=== PATIENT | female | born 1955 | race Caucasian/White ===

== ENCOUNTER 2016-07-05 10:05 | Emergency (ER) | payer BC, OTHER ==
[2016-07-05 10:26] VITALS: TEMP 97.9
[2016-07-05 10:52] LABS: COLOR YELLOW; LEUKOCYTE ESTERASE,URINE NEGATIVE (NEGATIVE); NITRITE,URINE NEGATIVE (NEGATIVE)
--- NOTE | 2016-07-05 11:26 | EDPHY ---
H & P Stated Complaint: Blood in Urine, feels like kidney infection, has hx of kidney infection. Time Seen by Provider: 07/05/16 11:13 HPI/ROS: CHIEF COMPLAINT: Fatigue, Dark urine HISTORY OF PRESENT ILLNESS: The patient is a 60 year old female presenting with increased fatigue for the past few day. This morning urine was dark orange colored. She has lower abdominal pain that radiates to her flanks bilaterally. The patient has a history of recurrent kidney infections and states her symptoms feel similar. She felt febrile last night. She denies vagina bleeding. No vomiting, diarrhea, headache, or lightheadedness. The patient has a history of PE, she is anticoagulated on Coumadin. She denies chest pain, shortness of breath, or palpitations. The patient received a flu shot this season. REVIEW OF SYSTEMS: Aside from elements discussed in the HPI, a comprehensive 10-point review of systems was reviewed and is negative. PAST MEDICAL HISTORY: Pulmonary embolisms x2, hypertension, kidney infections, Endometriosis, Asthma, Depression. PSH: Cholecystectomy, Spinal fusion. SOCIAL HISTORY: Non-smoker. Occasional alcohol. No drug use. VITAL SIGNS: Reviewed by me GENERAL: Well-developed, well-nourished, resting comfortably in no respiratory distress. HEENT: Atraumatic. Eyes: No icterus, no injection. Mouth: moist mucous membranes. No erythema or lesions. Neck: supple with no adenopathy. LUNGS: Clear to auscultation bilaterally, no wheezes, rhonchi or rales. CARDIAC: Regular rate and rhythm, no rubs, murmurs or gallops. ABDOMEN: Soft, nontender, nondistended, bowel sounds normal. BACK: mild left flank tenderness. EXTREMITIES: No trauma. No edema. Range of motion is normal throughout. NEURO: Alert and oriented, grossly nonfocal. SKIN: Warm and dry, no rash. PSYCHIATRIC: Normal mentation, no agitation. Portions of this note were transcribed by a medical staff coordinator. I personally performed a history, physical exam, medical decision making, and confirmed accuracy of information the transcribed note. - Personal History Current Tetanus/Diphtheria Vaccine: Yes Current Tetanus Diphtheria and Acellular Pertussis (TDAP): Yes - Medical/Surgical History Hx Asthma: Yes Hx Chronic Respiratory Disease: No Hx Diabetes: No Hx Cardiac Disease: No Hx Renal Disease: No Hx Cirrhosis: No Hx Alcoholism: No Hx HIV/AIDS: No Hx Splenectomy or Spleen Trauma: No Other PMH: Spinal fusion C5/C6. Kidney stone, HTN, Major Depressive DO, Asthma, PE in '08 - Social History Smoking Status: Former smoker Constitutional: Initial Vital Signs Temperature (C) 36.6 C 07/05/16 10:21 Heart Rate 93 07/05/16 10:21 Respiratory Rate 14 07/05/16 10:21 Blood Pressure 112/60 07/05/16 10:21 O2 Sat (%) 93 07/05/16 10:21 O2 Delivery Mode Room Air Allergies/Adverse Reactions: mushroom Allergy (Mild, Verified 07/05/16 10:26) Vomiting Sulfa (Sulfonamide Antibiotics) Allergy (Unknown, Verified 11/15/10 07:22) mycins Allergy (Unknown, Uncoded 11/15/10 07:22) Home Medications: Medication Instructions Recorded Artane 2 mg 11/15/10 Atorvastatin Calcium [Lipitor 40mg] 40 mg PO DAILY 11/15/10 Calcium Supplements 1,000 mg 11/15/10 ESTRADIOL [VAGIFEM] 11/15/10 Fluconazole [Diflucan] 11/15/10 Frovatriptan Succinate [Frova] 11/15/10 Gabapentin [Neurontin] 400 11/15/10 Hydrocodone Bit/Acetaminophen 1 tab PO Q4-6PRN PRN 11/15/10 [OLMCYB97/325] Levothyroxine [Levothroid, 100 mcg PO DAILY@1000 11/15/10 Synthroid] Loratadine [Claritin] 10 mg PO 11/15/10 Magnesium Malate 11/15/10 Melatonin 5 11/15/10 Mometasone Furoate Nasal [Nasonex] 2 sprays NASAL DAILY 11/15/10 Montelukast Sodium [Singulair] 11/15/10 Mv 11/15/10 Bellevue-3 Fatty Acids [Bellevue-3] 11/15/10 Paliperidone [INVEGA] 11/15/10 Pantoprazole Sodium [Protonix] 40 mg PO DAILY 11/15/10 Prochlorperazine Maleate PRN 11/15/10 [Compazine] Prodrin 11/15/10 Promethazine HCl [Phenergan] 25 mg PO PRN 11/15/10 TIZANIDINE HCL [Zanaflex] 4 mg PO 11/15/10 TRAMADOL HCL 50 11/15/10 Topiramate [Topamax] 100 mg PO 11/15/10 Verapamil ER [Calan SR/ER 240MG 11/15/10 (*)] Vit B6 11/15/10 Vit C 500 11/15/10 Vit E With Selenium 400 iunits 11/15/10 WARFARIN SODIUM [Coumadin] 7.5 mg PO 11/15/10 Zinc Gluconate [Zinc Chelated] 30 mg PO 11/15/10 traZODone [traZODone HCL] 300 11/15/10 Ondansetron Odt [Zofran Odt 4 mg 4 mg PO Q6 PRN #6 tab 07/05/16 (RX)] Medical Decision Making - Diagnostics EKG Interpretation: The 12 lead EKG was interpreted by myself. See hard copy and/or "tracemaster" electronic copy for interpretation: Sinus rhythm, abnormal R wave progression. Imaging: Results: CT scan of the abdomen/pelvis was obtained. I viewed the images independently on the PACS system. I discussed the results of the study with the radiologist. Impression: Pronounced constipation with nonspecific mildly dilated loops of small bowel with some scattered air-fluid levels, suggestive of a dysmotile syndrome. There is no mechanical obstructive process observed. Please see the full radiology report. ED Course/Re-evaluation: UA is negative for infection. Plan for EKG, labs, and troponin. Blood work is normal. UA is negative for infection. Troponin is negative. Patient's CT scan demonstrates pronounced constipation, no kidney stone, no bowel obstruction. Patient was reassured by the findings. She was advised to use MiraLax for constipation, drink plenty of fluids, get plenty of rest, eat a balanced diet starting with a bland diet, and return to the emergency department as needed. Differential Diagnosis: After obtaining the patient's history and performing an examination, differential diagnosis of the patient's fatigue in urinary complaints considered included but was not limited to urinary tract infection, kidney stone , pyelonephritis, shingles, intra-abdominal causes such as diverticulitis or or appendicitis, constipation, electrolyte abnormalities. - Data Points Laboratory Results: Laboratory Results 07/05/16 10:53 07/05/16 10:53 07/05/16 07/05/16 07/05/16 10:53 10:53 10:53 WBC 7.69 10^3/uL 10^3/uL (3.80-9.50) RBC 4.65 10^6/uL 10^6/uL (4.18-5.33) Hgb 14.4 g/dL g/dL (12.6-16.3) Hct 43.7 % % (38.0-47.0) MCV 94.0 fL fL (81.5-99.8) MCH 31.0 pg pg (27.9-34.1) MCHC 33.0 g/dL g/dL (32.4-36.7) RDW 14.1 % % (11.5-15.2) Plt Count 236 10^3/uL 10^3/uL (150-400) MPV 10.0 fL fL (8.7-11.7) Neut % (Auto) 60.3 % % (39.3-74.2) Lymph % (Auto) 27.6 % % (15.0-45.0) Dukes % (Auto) 6.1 % % (4.5-13.0) Eos % (Auto) 4.9 % % (0.6-7.6) Baso % (Auto) 0.8 % % (0.3-1.7) Nucleat RBC Rel Count 0.0 % % (0.0-0.2) Absolute Neuts (auto) 4.64 10^3/uL 10^3/uL (1.70-6.50) Absolute Lymphs (auto) 2.12 10^3/uL 10^3/uL (1.00-3.00) Absolute Monos (auto) 0.47 10^3/uL 10^3/uL (0.30-0.80) Absolute Eos (auto) 0.38 10^3/uL 10^3/uL (0.03-0.40) Absolute Basos (auto) 0.06 10^3/uL 10^3/uL (0.02-0.10) Absolute Nucleated RBC 0.00 10^3/uL 10^3/uL (0-0.01) Immature Gran % 0.3 % % (0.0-1.1) Immature Gran # 0.02 10^3/uL 10^3/uL (0.00-0.10) PT 26.4 SEC H SEC (12.0-15.0) INR 2.40 H (0.83-1.16) Sodium 143 mEq/L mEq/L (134-144) Potassium 4.1 mEq/L mEq/L (3.5-5.2) Chloride 106 mEq/L mEq/L (97-110) Carbon Dioxide 25 mEq/l mEq/l (22-31) Anion Gap 12 mEq/L mEq/L (8-16) BUN 19 mg/dL mg/dL (7-23) Creatinine 0.8 mg/dL mg/dL (0.6-1.0) Estimated GFR > 60 Glucose 121 mg/dL H mg/dL (70-100) Calcium 9.6 mg/dL mg/dL (8.5-10.4) Troponin I < 0.012 ng/mL ng/mL (0-0.034) Lipase 60.0 IU/L IU/L (23-300) Urine Color Urine Appearance Urine pH Ur Specific Lawley Urine Protein Urine Ketones Urine Blood Urine Nitrate Urine Bilirubin Urine Urobilinogen Ur Leukocyte Esterase Urine Glucose 07/05/16 10:30 WBC RBC Hgb Hct MCV MCH MCHC RDW Plt Count MPV Neut % (Auto) Lymph % (Auto) Dukes % (Auto) Eos % (Auto) Baso % (Auto) Nucleat RBC Rel Count Absolute Neuts (auto) Absolute Lymphs (auto) Absolute Monos (auto) Absolute Eos (auto) Absolute Basos (auto) Absolute Nucleated RBC Immature Gran % Immature Gran # PT INR Sodium Potassium Chloride Carbon Dioxide Anion Gap BUN Creatinine Estimated GFR Glucose Calcium Troponin I Lipase Urine Color YELLOW Urine Appearance CLEAR Urine pH 6.0 (5.0-7.5) Ur Specific [place] 1.017 (1.002-1.030) Urine Protein NEGATIVE (NEGATIVE) Urine Ketones NEGATIVE (NEGATIVE) Urine Blood NEGATIVE (NEGATIVE) Urine Nitrate NEGATIVE (NEGATIVE) Urine Bilirubin NEGATIVE (NEGATIVE) Urine Urobilinogen NEGATIVE EU EU (0.2-1.0) Ur Leukocyte Esterase NEGATIVE (NEGATIVE) Urine Glucose NEGATIVE (NEGATIVE) Departure - Departure Disposition: Home, Routine, Self-Care Clinical Impression: Left flank discomfort, Nausea Constipation Qualifiers: Constipation type: unspecified constipation type Qualified Code(s): K59.00 - Constipation, unspecified Fatigue Qualifiers: Fatigue type: unspecified Qualified Code(s): R53.83 - Other fatigue Condition: Good Instructions: Constipation (ED), Abdominal Pain (ED), Flank Pain (ED) Additional Instructions: #1. For your nausea, I suggested you start with a bland diet and advance as tolerated. This means start with clear liquids such as water, Gatorade, juice, flat non- caffeinated soda. If you tolerate clear liquids, then you may add bland foods such as bananas, rice, or toast. If you do not have any worsening of your symptoms, you may begin to resume a regular diet. #2. Take Zofran as directed for nausea. #3. I recommend MiraLAX for diarrhea, you can buy this at the store. #4. Followup with your primary care physician if you continue to have symptoms. Referrals: AYESHA REEVES [Other] - As per Instructions Prescriptions: Ondansetron Odt [Zofran Odt 4 mg (RX)] 4 mg PO Q6 PRN #6 tab PRN Reason: Nausea Report Scribed for: Janki Yoder Report Scribed by: Kajal Velasquez Date of Report: 07/05/16 Time of Report: 11:26
[2016-07-05 12:07] LABS: % IMMATURE GRANULYOCYTES 0.3 % (0.0-1.1); ABSOLUTE IMMATURE GRANULOCYTES 0.02 10^3/uL (0.00-0.10); ADD DIFF? NO; ADD MORPH? NO; ADD SCAN? NO; ATYPICAL LYMPHOCYTE FLAG 10 (0-99); FRAGMENT RBC FLAG 0 (0-99); HEMATOCRIT 43.7 % (38.0-47.0); HEMOGLOBIN 14.4 g/dL (12.6-16.3); LEFT SHIFT FLG 0 (0-99); LIPEMIA HEMOLYSIS FLAG 80 (0-99); PLATELET CLUMPS FLAG 0 (0-99); PLATELET COUNT 236 10^3/uL (150-400); RED BLOOD CELL COUNT 4.65 10^6/uL (4.18-5.33); RED CELL DISTRIBUTION WIDTH 14.1 % (11.5-15.2)
[2016-07-05 12:12] LABS: ANION GAP 12 mEq/L (8-16); CALCIUM 9.6 mg/dL (8.5-10.4); CARBON DIOXIDE 25 mEq/l (22-31); CHLORIDE 106 mEq/L (97-110); CREATININE 0.8 mg/dL (0.6-1.0); GLOMERULAR FILTRATION RATE > 60; GLUCOSE 121 mg/dL (70-100); POTASSIUM 4.1 mEq/L (3.5-5.2); SODIUM 143 mEq/L (134-144)
[2016-07-05 12:13] LABS: INR 2.4 (0.83-1.16); PROTIME(PATIENT) 26.4 SEC (12.0-15.0)
[2016-07-05 12:24] LABS: TROPONIN I < 0.012 ng/mL (0-0.034)
--- NOTE | 2016-07-05 13:07 | CPEKG ---
Heart Rate: 68 RR Interval: 882 P-R Interval: 192 QRSD Interval: 88 QT Interval: 424 QTC Interval: 451 P Jack: 34 QRS Jack: -29 T Wave Jack: 49 EKG Severity - ABNORMAL ECG - EKG Impression: SINUS RHYTHM EKG Impression: BORDERLINE LEFT AXIS DEVIATION EKG Impression: ABNRM R PROG, CONSIDER ASMI OR LEAD PLACEMENT EKG Impression: BORDERLINE T ABNORMALITIES, ANTERIOR LEADS Electronically Signed By: Deb Willett 05-Jul-2016 15:34:55
[2016-07-05 13:29] VITALS: BP 119/76; PULSE 72; RESP 16; O2SAT 90
== END 2016-07-05 14:23 | disposition home or self-care (01) ==
DX: R53.83 Other fatigue (principal); K59.00 Constipation, unspecified; I10 Essential (primary) hypertension; J45.909 Unspecified asthma, uncomplicated; Z90.49 Acquired absence of other specified parts of digestive tract; Z79.01 Long term (current) use of anticoagulants